=== PATIENT | female | born 1930 | race Caucasian/White ===

== ENCOUNTER 2020-07-30 16:37 | Emergency (ER) | payer MEDICARE, BC ==
[~2020-07-30] VITALS: Ht 154.9 cm; Wt 56.8 kg
[2020-07-30] MEDS ORDERED: HYDROcodone/acetaminophen 10/325mg tab PO STA (16:58)
--- NOTE | 2020-07-30 18:00 | NUR ---
CALL SON IF PT IS GETTING D/C OR ANY UPDATE CELLPHONE [phone].LANDLINE NUMBER [id number].
[2020-07-30 18:01] LABS: BASOPHILS % (AUTO) 0.2 % (0-1); EOSINOPHILS % (AUTO) 0.1 % (0-6); HEMATOCRIT 38.4 % (35.0-45.0); HEMOGLOBIN 12.8 g/dl (12.0-16.0); LYMPHOCYTES # (AUTO) 0.8 X10'3 (1.1-4.8); LYMPHOCYTES % (AUTO) 6.7 % (21-51); MEAN CORPUSCULAR HEMOGLOBIN 31.8 PG (27.0-31.0); MEAN CORPUSCULAR HGB CONC 33.4 g/dL (33.0-36.5); MEAN CORPUSCULAR VOLUME 95.3 FL (78-98); MEAN PLATELET VOLUME 7.8 FL (7.4-10.4); MONOCYTES # (AUTO) 0.6 X10'3 (0-0.9); MONOCYTES % (AUTO) 5.5 % (2-12); NEUTROPHILS # (AUTO) 10.2 X10'3 (1.8-7.7); NEUTROPHILS % (AUTO) 87.5 % (42-75); PLATELET COUNT 149 X10'3 (140-440); RED BLOOD COUNT 4.03 X10'6 (4.20-5.60); WHITE BLOOD COUNT 11.7 X10'3 (4.5-11.0)
[2020-07-30 18:48] LABS: ALANINE AMINOTRANSFERASE 32 U/L (12-78); ALBUMIN 3.8 G/DL (3.4-5.0); ALBUMIN/GLOBULIN RATIO 1.1 (1.1-1.5); ALKALINE PHOSPHATASE 79 IU/L (46-116); ANION GAP 8 (8-16); ASPARTATE AMINO TRANSFERASE 30 U/L (10-37); BILIRUBIN,TOTAL 0.5 MG/DL (0.1-1.0); BLOOD UREA NITROGEN 18 MG/DL (7-18); BUN/CREATININE RATIO 20.2 (6.6-38.0); CHLORIDE 104 MMOL/L (99-107); CREATININE 0.89 MG/DL (0.40-0.90); GLUCOSE 167 MG/DL (70-104); MAGNESIUM 1.9 MG/DL (1.5-2.4); POTASSIUM 4.2 MMOL/L (3.5-5.1); SODIUM 140 MMOL/L (135-145); TOTAL CARBON DIOXIDE 27.8 MMOL/L (24-32); TOTAL PROTEIN 7.2 G/DL (6.4-8.2); eGFR 60 ML/MIN
[2020-07-30] MEDS ORDERED: ONDA4TAB6 PO (19:22)
[2020-07-30] MEDS ORDERED: HYDR-3965 PO (19:22)
[2020-07-30] MEDS ORDERED: HYDROcodone/acetaminophen 5mg/325mg tablet PO ONE (19:30)
[2020-07-30] MEDS ORDERED: ondansetron/PF 4mg/2ml inj IV ONE (19:30)
[2020-07-30 19:53] VITALS: BP 136/80
== END 2020-07-30 19:56 | disposition home or self-care (01) ==
LOC: ER 16:38
DX: S42.302A Unspecified fracture of shaft of humerus, left arm, initial encounter for closed fracture (principal); E11.649 Type 2 diabetes mellitus with hypoglycemia without coma; Z88.2 Allergy status to sulfonamides; Z79.899 Other long term (current) drug therapy; W18.39XA Other fall on same level, initial encounter; Y93.89 Activity, other specified; Y92.89 Other specified places as the place of occurrence of the external cause; Y99.8 Other external cause status
CPT/HCPCS: 29105; 36415; 71045; 73030; 80053; 82948; 83735; 83880; 84484; 85025; 93005; 96374; 99285; J2405

== ENCOUNTER 2020-11-11 19:57 | Inpatient (IN) | payer MEDICARE, BC ==
[~2020-11-11] VITALS: Ht 160 cm; Wt 45.3 kg
[~2020-11-11 19:57] MED LIST: ONDA4TAB6 PO
[2020-11-11 20:35] LABS: BASOPHILS % (AUTO) 0.2 % (0-1); EOSINOPHILS % (AUTO) 0.1 % (0-6); HEMOGLOBIN 13.4 g/dl (12.0-16.0); LYMPHOCYTES # (AUTO) 1.3 X10'3 (1.1-4.8); LYMPHOCYTES % (AUTO) 10.9 % (21-51); MEAN CORPUSCULAR HGB CONC 33.5 g/dL (33.0-36.5); MEAN CORPUSCULAR VOLUME 92.6 FL (78-98); MEAN PLATELET VOLUME 8.1 FL (7.4-10.4); MONOCYTES # (AUTO) 1.1 X10'3 (0-0.9); NEUTROPHILS # (AUTO) 9.7 X10'3 (1.8-7.7); NEUTROPHILS % (AUTO) 79.8 % (42-75); PLATELET COUNT 179 X10'3 (140-440); RED BLOOD COUNT 4.33 X10'6 (4.20-5.60); RED CELL DISTRIBUTION WIDTH 13.3 % (11.5-14.5); WHITE BLOOD COUNT 12.1 X10'3 (4.5-11.0)
[2020-11-11 20:39] LABS: ALANINE AMINOTRANSFERASE 19 U/L (12-78); ALBUMIN 3.5 G/DL (3.4-5.0); ALBUMIN/GLOBULIN RATIO 0.9 (1.1-1.5); ALKALINE PHOSPHATASE 119 IU/L (46-116); ANION GAP 11 (8-16); ASPARTATE AMINO TRANSFERASE 16 U/L (10-37); BILIRUBIN,TOTAL 0.7 MG/DL (0.1-1.0); BLOOD UREA NITROGEN 35 MG/DL (7-18); BUN/CREATININE RATIO 22.4 (6.6-38.0); CALCIUM 8.7 MG/DL (8.5-10.1); CHLORIDE 102 MMOL/L (99-107); CREATININE 1.56 MG/DL (0.40-0.90); GLUCOSE 212 MG/DL (70-104); LIPASE 74 U/L (73-393); POTASSIUM 3.7 MMOL/L (3.5-5.1); SODIUM 138 MMOL/L (135-145); TOTAL CARBON DIOXIDE 24.7 MMOL/L (24-32); TOTAL PROTEIN 7.3 G/DL (6.4-8.2); eGFR 31 ML/MIN
[2020-11-11 20:43] LABS: CLARITY,URINE CLEAR (Clear); COLOR,URINE YELLOW (Yellow); GLUCOSE, URINE >=1000 mg/dl (Neg); KETONES,URINE 15 mg/dl (Neg); LEUKOCYTE ESTERASE ,URINE NEGATIVE (Neg); NITRITES, URINE NEGATIVE (Neg); OCCULT BLOOD,URINE LARGE (Neg); PROTEIN,URINE NEGATIVE (Neg); UROBILINOGEN,URINE 0.2 E.U/dL (0.2-1.0)
[2020-11-11 20:44] LABS: UA COLLECTION TYPE CLN CATCH MIDSTREAM
[2020-11-11] MEDS ORDERED: morphine 4 MG/ML inj SYRINge IV ONE (20:50)
[2020-11-11] MEDS ORDERED: normal saline 1000ml 1,000 ML IV ONE ×2 (20:50)
[2020-11-11] MEDS ORDERED: ondansetron/PF 4mg/2ml inj IV ONE (20:50)
[2020-11-11] MEDS ORDERED: iohexol 300mg/ml 100ml inj. ONE (20:52)
[2020-11-11 20:56] LABS: CAL OXALATE CRYSTALS 1+ /HPF (NEGATIVE); SQUAMOUS EPITHELIAL CELL,UR FEW /LPF (FEW)
[2020-11-11 20:57] LABS: BACTERIA,URINE FEW /HPF (Neg)
[2020-11-11] MEDS ORDERED: LEVO50TA66 PO (22:43)
[2020-11-11] MEDS ORDERED: BLOO-384 (22:43)
[2020-11-11] MEDS ORDERED: HUM7525 SUBCUT (22:43)
[2020-11-11] MEDS ORDERED: mag hydrox/Alum hydrox/simeth 30ml oral suspension PO PRN (22:45)
[2020-11-11] MEDS ORDERED: magnesium Cl slow-release 64mg tablet PO PRN (22:45)
[2020-11-11] MEDS ORDERED: dextrose 50%-water 50ml dispensing syringe IV PRN ×2 (22:45)
[2020-11-11] MEDS ORDERED: potassium Cl 20 mEq SR tablet PO PRN ×2 (22:45)
[2020-11-11] MEDS ORDERED: dextrose ORAL solution 15 GM/59 ML bottle PO PRN ×2 (22:45)
[2020-11-11] MEDS ORDERED: magnesium hydroxide 30ml (MOM) UD suspension PO PRN (22:45)
[2020-11-11] MEDS ORDERED: magnesium 4gm in 100ml NS 100 ML IV PRN (22:45)
[2020-11-11] MEDS ORDERED: acetaminophen 325mg tablet PO PRN (22:45)
[2020-11-11] MEDS ORDERED: HYDROcodone/acetaminophen 5mg/325mg tablet PO PRN (22:45)
[2020-11-11] MEDS ORDERED: glucagon, human recombinant 1mg kit SUBCUT PRN (22:45)
[2020-11-11] MEDS ORDERED: potassium Cl 40MEQ/1/2NS 520ml 520 ML IV PRN ×2 (22:45)
[2020-11-11] MEDS ORDERED: magnesium 2GM in 50ml NS 50 ML IV PRN (22:45)
[2020-11-11] MEDS ORDERED: MESSAGE TO PHARMACY PO ONE (22:45)
[2020-11-11 23:10] LABS: HEMOGLOBIN A1C 7.8 % (4.5-6.2)
[2020-11-11] MEDS ORDERED: GLUC3SPR INH (23:10)
--- NOTE | 2020-11-12 00:03 | NUR ---
Received report from JANESSA Davidson. Pt. to follow shortly. Addendum: 11/12/20 at 0047 by Estephania Camacho RN Janessa BURNETTE name is Carrie, jose l Davidson.
--- NOTE | 2020-11-12 00:05 | NUR ---
Patient arrived to floor with belongings via W/C from ER. Patient in no distress at this time. Transferred from w/c to bed with SBA x1. Pt. A&Ox4 and denies having any pain at this time. VS initiated, and resource in room to uday.
[2020-11-12] MEDS: normal saline 1000ml 1,000 ML IV SCH ×3 (00:10→12:56)
[2020-11-12 00:16] VITALS: BP 161/63
[2020-11-12] MEDS ORDERED: novolog flex pen SQ (01:59)
[2020-11-12 05:00] VITALS: BP 132/59
[2020-11-12] MEDS: ondansetron/PF 4mg/2ml inj IV PRN ×2 (05:20→19:25)
--- NOTE | 2020-11-12 06:29 | NUR ---
Patient in room [facility]. I have received report from YOMAIRA Best and had the opportunity to ask questions and assume patient care.
--- NOTE | 2020-11-12 06:43 | NUR ---
Problems reprioritized. Patient report given, questions answered & plan of care reviewed with Pito BURNETTE.
[2020-11-12 06:46] LABS: BASOPHILS % (AUTO) 0.2 % (0-1); EOSINOPHILS % (AUTO) 0.3 % (0-6); HEMOGLOBIN 12.4 g/dl (12.0-16.0); LYMPHOCYTES # (AUTO) 1.5 X10'3 (1.1-4.8); LYMPHOCYTES % (AUTO) 16.3 % (21-51); MEAN CORPUSCULAR HEMOGLOBIN 31.6 PG (27.0-31.0); MEAN CORPUSCULAR HGB CONC 33.6 g/dL (33.0-36.5); MEAN CORPUSCULAR VOLUME 94.1 FL (78-98); MEAN PLATELET VOLUME 7.9 FL (7.4-10.4); MONOCYTES # (AUTO) 0.9 X10'3 (0-0.9); MONOCYTES % (AUTO) 9.5 % (2-12); NEUTROPHILS # (AUTO) 6.9 X10'3 (1.8-7.7); NEUTROPHILS % (AUTO) 73.7 % (42-75); PLATELET COUNT 141 X10'3 (140-440); RED BLOOD COUNT 3.93 X10'6 (4.20-5.60); RED CELL DISTRIBUTION WIDTH 13.3 % (11.5-14.5); WHITE BLOOD COUNT 9.3 X10'3 (4.5-11.0)
[2020-11-12 07:15] LABS: ALANINE AMINOTRANSFERASE 13 U/L (12-78); ALBUMIN 2.7 G/DL (3.4-5.0); ALBUMIN/GLOBULIN RATIO 0.8 (1.1-1.5); ALKALINE PHOSPHATASE 99 IU/L (46-116); ANION GAP 8 (8-16); ASPARTATE AMINO TRANSFERASE 14 U/L (10-37); BILIRUBIN,TOTAL 0.8 MG/DL (0.1-1.0); BLOOD UREA NITROGEN 25 MG/DL (7-18); BUN/CREATININE RATIO 21.4 (6.6-38.0); CHLORIDE 107 MMOL/L (99-107); CREATININE 1.17 MG/DL (0.40-0.90); GLUCOSE 195 MG/DL (70-104); MAGNESIUM 1.8 MG/DL (1.5-2.4); POTASSIUM 3.8 MMOL/L (3.5-5.1); SODIUM 139 MMOL/L (135-145); eGFR 44 ML/MIN
[2020-11-12] MEDS: levoTHYROXINE 25mcg tablet PO SCH (07:56)
[2020-11-12 08:00] VITALS: BP 128/55
[2020-11-12] MEDS: K and/or MAG REPLACEMENT MC SCH ×2 (08:00→20:00)
[2020-11-12] MEDS: insulin Lispro (HumaLOG) vial - multi-dose SQ SCH ×3 (09:23→19:14)
[2020-11-12] MEDS ORDERED: tamsulosin 0.4mg capsule PO SCH (10:30)
[2020-11-12] MEDS: morphine 2 MG/ML inj. syringe IV PRN ×2 (10:39→19:30)
[2020-11-12 11:41] LABS: PARTIAL THROMBOPLASTIN TIME 24 SECONDS (22-32)
[2020-11-12 12:41] VITALS: BP 150/66
--- NOTE | 2020-11-12 13:57 | NUR ---
Pt with a low BMI of 17.7 though current documented wt isn't scaled. Pt with full upper dentures per admission assessment, 0% PO intake first meal. Pt admit with left ureteral calculus, currently documented with 8/10 pain likely impacting PO intake. Pt denies wt loss or decrease in appetite per malnutrition risk screen with RN. Pt with no documented decrease in muscle strength or edema. Pt appears WDWN per ED report. Pt currently lacks a minimum of two criteria for malnutrition. Pt with hx T2DM, current A1c is 7.8%. DM education not warranted at this time given well controlled for geriatric age. Will continue to follow closely and make recommendations as appropriate. Addendum: 11/12/20 at [address] Amended: Links added.
--- NOTE | 2020-11-12 18:35 | NUR ---
Patient in room [facility]. I have received report from Pito BURNETTE and had the opportunity to ask questions and assume patient care.
--- NOTE | 2020-11-12 18:36 | NUR ---
Problems reprioritized. Patient report given, questions answered & plan of care reviewed with YOMAIRA Bhakta. Addendum: 11/12/20 at 1847 by Pito Brady RN Problems reprioritized. Patient report given, questions answered & plan of care reviewed with YOMAIRA GEORGE.
[2020-11-12 19:00] VITALS: BP 132/63
[2020-11-12] MEDS ORDERED: normal saline 1000ml 1,000 ML IV ONE (19:25)
[2020-11-12] MEDS ORDERED: insulin glargine (Lantus) pen - multi-dose SQ SCH (21:00)
[2020-11-13] MEDS ORDERED: proCHLORperazine 10 MG/2 ml inj IV PRN
[2020-11-13 00:05] VITALS: BP 141/67
--- NOTE | 2020-11-13 00:05 | NUR ---
New order for compazine obtained as patient very nauseated and has 1 1/2 hour until next zofran can be given.
[2020-11-13] MEDS: normal saline 1000ml 1,000 ML IV SCH ×2 (00:12→10:54)
--- NOTE | 2020-11-13 06:30 | NUR ---
Problems reprioritized. Patient report given, questions answered & plan of care reviewed with Shannan BURNETTE.
--- NOTE | 2020-11-13 06:45 | NUR ---
Patient in room [facility]. I have received report from YOMAIRA GEORGE and had the opportunity to ask questions and assume patient care.
[2020-11-13 07:00] VITALS: BP 138/67
[2020-11-13 07:15] LABS: BASOPHILS % (AUTO) 0.2 % (0-1); EOSINOPHILS % (AUTO) 0.2 % (0-6); HEMATOCRIT 37.7 % (35.0-45.0); HEMOGLOBIN 12.7 g/dl (12.0-16.0); LYMPHOCYTES % (AUTO) 11.5 % (21-51); MEAN CORPUSCULAR HEMOGLOBIN 31.7 PG (27.0-31.0); MEAN CORPUSCULAR HGB CONC 33.8 g/dL (33.0-36.5); MEAN CORPUSCULAR VOLUME 93.7 FL (78-98); MEAN PLATELET VOLUME 8.3 FL (7.4-10.4); MONOCYTES # (AUTO) 0.8 X10'3 (0-0.9); MONOCYTES % (AUTO) 9.3 % (2-12); NEUTROPHILS # (AUTO) 6.9 X10'3 (1.8-7.7); NEUTROPHILS % (AUTO) 78.8 % (42-75); PLATELET COUNT 139 X10'3 (140-440); RED BLOOD COUNT 4.02 X10'6 (4.20-5.60); RED CELL DISTRIBUTION WIDTH 13.1 % (11.5-14.5); WHITE BLOOD COUNT 8.8 X10'3 (4.5-11.0)
[2020-11-13 07:54] LABS: ALANINE AMINOTRANSFERASE 13 U/L (12-78); ALBUMIN 2.6 G/DL (3.4-5.0); ALBUMIN/GLOBULIN RATIO 0.7 (1.1-1.5); ALKALINE PHOSPHATASE 109 IU/L (46-116); ANION GAP 14 (8-16); ASPARTATE AMINO TRANSFERASE 12 U/L (10-37); BILIRUBIN,TOTAL 0.8 MG/DL (0.1-1.0); BLOOD UREA NITROGEN 21 MG/DL (7-18); BUN/CREATININE RATIO 19.4 (6.6-38.0); CALCIUM 8.5 MG/DL (8.5-10.1); CHLORIDE 104 MMOL/L (99-107); CREATININE 1.08 MG/DL (0.40-0.90); GLUCOSE 263 MG/DL (70-104); MAGNESIUM 2.2 MG/DL (1.5-2.4); POTASSIUM 4.2 MMOL/L (3.5-5.1); SODIUM 137 MMOL/L (135-145); TOTAL CARBON DIOXIDE 19.4 MMOL/L (24-32); TOTAL PROTEIN 6.2 G/DL (6.4-8.2); eGFR 48 ML/MIN
[2020-11-13] MEDS: K and/or MAG REPLACEMENT MC SCH (08:00)
[2020-11-13] MEDS ORDERED: ceFAZolin/D5W- 1GM premix 50 ML IV SCH (08:40)
[2020-11-13] MEDS: levoTHYROXINE 25mcg tablet PO SCH (10:53)
[2020-11-13 11:00] VITALS: BP 136/73
--- NOTE | 2020-11-13 16:04 | NUR ---
Pt seen at bedside, current documented wt likely inaccurate. Pt with 0% PO intake throughout LOS up to 100% PO intake at lunch today. Pt reports a low appetite though states she isn't a big eater and does drink Glucerna at home if not eating much. Pt states she likes soups for lunch and dinner, d/w dietary. Pt denies food allergies or difficulty chewing/swallowing. Pt pending discharge at this time. Pt provided with RD contact information and [employer] coupons. Will continue to follow. Addendum: 11/13/20 at [address] Amended: Links added.
--- NOTE | 2020-11-13 17:40 | NUR ---
PATIENT STABLE AND APPROPRIATE FOR DISCHARGE, EDUCATION AND SUPPLIES GIVEN, IV TAKEN OUT, ALL BELONGINGS SENT WITH PATIENT, PATIENT TAKEN TO LOBBY BY WHEELCHAIR TO AN AWAITING CAR WHERE FAMILY MEMBER WILL TAKE PATIENT HOME
== END 2020-11-13 17:37 | disposition home or self-care (01) | DRG 694 ==
LOC: ER 19:57 → ED HOLD 22:42 → SUR 3N 11-12 00:09
PROVIDERS: ADMIT Family Medicine; ATTEND Family Medicine
PROC: BW211ZZ Computerized Tomography (CT Scan) of Abdomen and Pelvis using Low Osmolar Contrast (ICD-10-PCS; principal; 2020-11-11)
DX: N13.2 Hydronephrosis with renal and ureteral calculous obstruction (principal); E11.22 Type 2 diabetes mellitus with diabetic chronic kidney disease; E86.0 Dehydration; N17.9 Acute kidney failure, unspecified; N18.9 Chronic kidney disease, unspecified; Z20.828 Contact with and (suspected) exposure to other viral communicable diseases; Z88.2 Allergy status to sulfonamides; Z79.899 Other long term (current) drug therapy; Z79.4 Long term (current) use of insulin
CPT/HCPCS: 36415; 71045; 74177; 80053; 81001; 82948; 83036; 83690; 83735; 85025; 85610; 85730; 87081; 87635; 96374; 96375; 99285; G0378; J0690; J0780; J1815; J2270; J2405; J7030; Q9967

== ENCOUNTER → 2020-11-28 | Day surgery (SDC) | payer MEDICARE, BC ==
[2020-11-22 15:25] LABS: ALBUMIN 3.1 G/DL (3.4-5.0); ALBUMIN/GLOBULIN RATIO 0.8 (1.1-1.5); ALKALINE PHOSPHATASE 103 IU/L (46-116); BLOOD UREA NITROGEN 15 MG/DL (7-18); BUN/CREATININE RATIO 17.9 (6.6-38.0); CALCIUM 8.9 MG/DL (8.5-10.1); CHLORIDE 105 MMOL/L (99-107); CREATININE 0.84 MG/DL (0.40-0.90); PRE OP ALT 17 U/L (30-65); PRE OP ANION GAP 9 (8-16); PRE OP AST 16 U/L (10-37); PRE OP BILIRUB, TOTAL 0.3 MG/DL (0.0-1.0); PRE OP SODIUM 143 MMOL/L (135-145); TOTAL CARBON DIOXIDE 28.9 MMOL/L (24-32); eGFR 64 ML/MIN
[2020-11-22 15:27] LABS: PRE OP GLUCOSE 48 MG/DL (70-104); PRE OP POTASSIUM 3.1 MMOL/L (3.4-5.1)
[~2020-11-28] VITALS: Ht 160 cm; Wt 55.2 kg
[2020-11-28] VITALS (9 sets, daily range): BP systolic 119–137; BP diastolic 50–67
[~2020-11-28] MED LIST changes: +CEFD300C3 PO; +HUM7525 SQ; +INSU100V37 SQ; +LACT1CAP74 PO; +LEVO50TA66 PO; +LIDOcaine 2% (20mg/ml) 5ml vial ONE; +NOVLG SUBCUT; -ONDA4TAB6 PO; +ceFAZolin 2gm in dextrose, iso 50 ML IV ONE; +desflurane 240ml liquid inh. IH ONE; +dexamethasone sod phosphate 10mg/ml inj ONE; +famotidine 20mg tablet PO ONE; +fentaNYL/PF 50MCG/1 ML 2ML syringe ONE; +insulin regular, human 10 units/0.1 ml syringe IV ONE; +iohexol 300 MG/1 ML 50ml polymer ONE; +meperidine/PF 25mg/ml syringe IV PRN; +midazolam 2 mg/2 ml injection ONE; +morphine 2 MG/ML inj. syringe IV PRN; +morphine 4 MG/ML inj SYRINge IV PRN; +ondansetron/PF 4mg/2ml inj IV PRN; +ondansetron/PF 4mg/2ml inj ONE; +proCHLORperazine 10 MG/2 ml inj IV PRN; +propofol inj 20 ML IV ONE; +ringers solution, lacted 1,000 ML IV SCH
[2020-11-28 06:39] LABS: BASOPHILS % (AUTO) 0.6 % (0-1); EOSINOPHILS # (AUTO) 0.2 X10'3 (0-0.9); LYMPHOCYTES # (AUTO) 1.1 X10'3 (1.1-4.8); LYMPHOCYTES % (AUTO) 16.3 % (21-51); MEAN CORPUSCULAR HEMOGLOBIN 30.8 PG (27.0-31.0); MEAN CORPUSCULAR HGB CONC 33.2 g/dL (33.0-36.5); MEAN CORPUSCULAR VOLUME 92.6 FL (78-98); MONOCYTES # (AUTO) 0.4 X10'3 (0-0.9); MONOCYTES % (AUTO) 6.3 % (2-12); NEUTROPHILS # (AUTO) 4.9 X10'3 (1.8-7.7); NEUTROPHILS % (AUTO) 73.8 % (42-75); PRE OP HEMATOCRIT 37.8 % (35.0-45.0); PRE OP HEMOGLOBIN 12.6 g/dL (12.0-16.0); PRE OP PLATELET COUNT 322 X10'3 (140-440); RED BLOOD COUNT 4.08 X10'6 (4.20-5.60); RED CELL DISTRIBUTION WIDTH 14.3 % (11.5-14.5)
[2020-11-28 06:54] LABS: ALANINE AMINOTRANSFERASE 15 U/L (12-78); ALBUMIN 3.1 G/DL (3.4-5.0); ALBUMIN/GLOBULIN RATIO 0.8 (1.1-1.5); ALKALINE PHOSPHATASE 99 IU/L (46-116); ANION GAP 9 (8-16); ASPARTATE AMINO TRANSFERASE 16 U/L (10-37); BILIRUBIN,TOTAL 0.5 MG/DL (0.1-1.0); BLOOD UREA NITROGEN 19 MG/DL (7-18); BUN/CREATININE RATIO 17.3 (6.6-38.0); CHLORIDE 103 MMOL/L (99-107); GLUCOSE 299 MG/DL (70-104); POTASSIUM 4.6 MMOL/L (3.5-5.1); SODIUM 138 MMOL/L (135-145); TOTAL CARBON DIOXIDE 26.5 MMOL/L (24-32); TOTAL PROTEIN 6.9 G/DL (6.4-8.2); eGFR 47 ML/MIN
--- NOTE | 2020-11-28 08:46 | NUR ---
Received from OR via [facility] , accompanied by Anesthesiologist EVA and report given by Anesthesiolgist. PATIENT WITH 20G PIV IN RIGHT UE RUNNING LR AT 100, DENIES PAIN.VSS. 10L MASK ON WITH 100% SATURATIONS. Addendum: 11/28/20 at 0853 by Luisito Norris RN, RN Amended: Links added.
--- NOTE | 2020-11-28 09:14 | NUR ---
167 BLOOD GLUCOSE IN RR Addendum: 11/28/20 at 0915 by Luisito Norris RN RN Amended: Links added.
--- NOTE | 2020-11-28 09:56 | NUR ---
PATIENT VERBALIZED UNDERSTANDING, OPPORTUNITY TO ASK QUESTIONS GIVEN AND PATIENT COMFORTABLE WITH DC. IV TAKEN OUT WITHOUT COMPLICATION. PATIENT HAS MET ALL DC CRITERIA FOR DC HOME. I HAVE REVIEWED D/C INSTRUCTIONS WITH PATIENT. TAKEN OUT VIA WHEELCHAIR WHERE PATIENT WAS TAKEN HOME WITH ALL BELONGINGS. FAMILY GAVE PATIENT TRANSPORT HOME. AMBULATED, VOIDED. ASSISTED WITH DRESSING AND NEISHA DROVE PATIENT HOME. Addendum: 11/28/20 at 1002 by Luisito Norris RN, RN Amended: Links added.
== END | disposition home or self-care (01) ==
LOC: PAS 05:15
PROVIDERS: ATTEND Student in an Organized Health Care Education/Training Program
DX: N13.2 Hydronephrosis with renal and ureteral calculous obstruction (principal); Z98.890 Other specified postprocedural states; E11.9 Type 2 diabetes mellitus without complications; Z79.4 Long term (current) use of insulin; E03.9 Hypothyroidism, unspecified; Z87.19 Personal history of other diseases of the digestive system; Z88.2 Allergy status to sulfonamides; Z79.899 Other long term (current) drug therapy; R10.9 Unspecified abdominal pain
CPT/HCPCS: 36415; 52356; 74420; 76000; 80053; 82948; 85025; C1758; C1769; C2617; J1100; J1815; J2001; J2250; J2405; J2704; J3010; J7030; Q9967; 88300; A4618; A7000; J7120

== ENCOUNTER 2020-12-17 16:25 | Emergency (ER) | payer MEDICARE, BC ==
[~2020-12-17] VITALS: Ht 160 cm; Wt 54.5 kg
[~2020-12-17 16:25] MED LIST changes: -LIDOcaine 2% (20mg/ml) 5ml vial ONE; -ceFAZolin 2gm in dextrose, iso 50 ML IV ONE; -desflurane 240ml liquid inh. IH ONE; -dexamethasone sod phosphate 10mg/ml inj ONE; -famotidine 20mg tablet PO ONE; -fentaNYL/PF 50MCG/1 ML 2ML syringe ONE; -insulin regular, human 10 units/0.1 ml syringe IV ONE; -iohexol 300 MG/1 ML 50ml polymer ONE; -meperidine/PF 25mg/ml syringe IV PRN; -midazolam 2 mg/2 ml injection ONE; -morphine 2 MG/ML inj. syringe IV PRN; -morphine 4 MG/ML inj SYRINge IV PRN; -ondansetron/PF 4mg/2ml inj IV PRN; -ondansetron/PF 4mg/2ml inj ONE; -proCHLORperazine 10 MG/2 ml inj IV PRN; -propofol inj 20 ML IV ONE; -ringers solution, lacted 1,000 ML IV SCH
[2020-12-17] MEDS ORDERED: normal saline 1000ml 1,000 ML IV ONE (16:55)
--- NOTE | 2020-12-17 17:24 | NUR ---
Spoke with daughter, Lynn. She will be able to pickle processor Pt when ready to go home. [phone]
[2020-12-17 17:37] LABS: HEMATOCRIT 37.4 % (35.0-45.0); MONOCYTES # (AUTO) 0.3 X10'3 (0-0.9); NEUTROPHILS # (AUTO) 3.6 X10'3 (1.8-7.7); WHITE BLOOD COUNT 4.8 X10'3 (4.5-11.0)
[2020-12-17 17:39] LABS: BASOPHILS % (AUTO) 0.7 % (0-1); EOSINOPHILS % (AUTO) 0.8 % (0-6); HEMOGLOBIN 12.5 g/dl (12.0-16.0); LYMPHOCYTES # (AUTO) 0.9 X10'3 (1.1-4.8); LYMPHOCYTES % (AUTO) 18.1 % (21-51); MEAN CORPUSCULAR HEMOGLOBIN 31.5 PG (27.0-31.0); MEAN CORPUSCULAR HGB CONC 33.5 g/dL (33.0-36.5); MEAN CORPUSCULAR VOLUME 93.9 FL (78-98); MEAN PLATELET VOLUME 7.5 FL (7.4-10.4); NEUTROPHILS % (AUTO) 74.4 % (42-75); PLATELET COUNT 201 X10'3 (140-440); RED BLOOD COUNT 3.98 X10'6 (4.20-5.60)
[2020-12-17 17:52] LABS: ALANINE AMINOTRANSFERASE 15 U/L (12-78); ALBUMIN 3.3 G/DL (3.4-5.0); ALBUMIN/GLOBULIN RATIO 0.9 (1.1-1.5); ALKALINE PHOSPHATASE 89 IU/L (46-116); ANION GAP 7 (8-16); ASPARTATE AMINO TRANSFERASE 17 U/L (10-37); BILIRUBIN,TOTAL 0.3 MG/DL (0.1-1.0); BLOOD UREA NITROGEN 22 MG/DL (7-18); BUN/CREATININE RATIO 29.3 (6.6-38.0); CALCIUM 8.4 MG/DL (8.5-10.1); CHLORIDE 104 MMOL/L (99-107); CREATININE 0.75 MG/DL (0.40-0.90); GLUCOSE 189 MG/DL (70-104); POTASSIUM 3.8 MMOL/L (3.5-5.1); SODIUM 138 MMOL/L (135-145); TOTAL CARBON DIOXIDE 26.8 MMOL/L (24-32); TOTAL PROTEIN 6.8 G/DL (6.4-8.2); eGFR 73 ML/MIN
[2020-12-17 18:08] LABS: CLARITY,URINE CLEAR (Clear); COLOR,URINE STRAW (Yellow); GLUCOSE, URINE 250 mg/dl (Neg); KETONES,URINE NEGATIVE (Neg); LEUKOCYTE ESTERASE ,URINE NEGATIVE (Neg); NITRITES, URINE NEGATIVE (Neg); OCCULT BLOOD,URINE TRACE-INTACT (Neg); PROTEIN,URINE NEGATIVE (Neg); UROBILINOGEN,URINE 0.2 E.U/dL (0.2-1.0)
[2020-12-17 18:12] LABS: UA COLLECTION TYPE CLN CATCH MIDSTREAM
[2020-12-17 18:19] LABS: MUCUS STRANDS NONE SEEN /LPF (Neg); SQUAMOUS EPITHELIAL CELL,UR FEW /LPF (FEW)
[2020-12-17 18:20] LABS: BACTERIA,URINE NONE SEEN /HPF (Neg); RBC,URINE 0-2 /HPF (0-2); WBC,URINE 0-4 /HPF (0-4)
[2020-12-17 18:58] VITALS: BP 146/68
== END 2020-12-17 19:01 | disposition home or self-care (01) ==
LOC: ER 16:25
DX: E11.649 Type 2 diabetes mellitus with hypoglycemia without coma (principal); R94.31 Abnormal electrocardiogram [ECG] [EKG]; Z87.442 Personal history of urinary calculi; Z88.2 Allergy status to sulfonamides; Z79.4 Long term (current) use of insulin; Z79.899 Other long term (current) drug therapy
CPT/HCPCS: 36415; 71045; 80053; 81001; 82948; 84484; 85025; 93005; 96360; 96361; 99285; J7030